=== PATIENT | female | born 1985 | race Caucasian/White ===

== ENCOUNTER 2019-10-10 04:24 | Emergency (ER) | payer SELFPAY ==
--- NOTE | 2019-10-10 04:57 | EDM.PDOC ---
ED HPI GENERAL MEDICAL PROBLEM - General Chief Complaint: Upper Extremity Injury/Pain Stated Complaint: MEDICAL CLEARANCE Time Seen by Provider: 10/10/19 04:52 Source of Information: Reports: Patient History Limitations: Reports: No Limitations - History of Present Illness INITIAL COMMENTS - FREE TEXT/NARRATIVE: She came in police custody says she injured her right wrist. Patient states that she banged her wrist on a hard object. [place] any other trauma Onset: Today Duration: Intermittent Location: Reports: Upper Extremity, Right Quality: Reports: Dull Severity: Mild Improves with: Reports: None Worsens with: Reports: None Associated Symptoms: Reports: No Other Symptoms R wrist Pain Score (Numeric/FACES): 4 - Related Data Allergies Allergy/AdvReac Type Severity Reaction Status Date / Time Penicillins Allergy Anaphylactic Verified 10/10/19 04:41 Shock Home Meds: Home Meds . [No Known Home Meds] 10/10/19 [History] Past Medical History - Infectious Disease History Infectious Disease History: Reports: Chicken Pox - Past Surgical History Musculoskeletal Surgical History: Reports: Other (See Below) Other Musculoskeletal Surgeries/Procedures:: R ankle tendon repair Social & Family History - Tobacco Use Smoking Status *Q: Current Every Day Smoker Years of Tobacco use: 10 Packs/Tins Daily: 0.5 - Caffeine Use Caffeine Use: Reports: Coffee - Recreational Drug Use Recreational Drug Use: No Review of Systems - Review of Systems Review Of Systems: See Below Constitutional: Reports: No Symptoms Eyes: Reports: No Symptoms Ears: Reports: No Symptoms Nose: Reports: No Symptoms Mouth/Throat: Reports: No Symptoms Respiratory: Reports: No Symptoms Cardiovascular: Reports: No Symptoms GI/Abdominal: Reports: No Symptoms Genitourinary: Reports: No Symptoms Musculoskeletal: Reports: Other ( RT Wrist pain minimal swelling) Skin: Reports: No Symptoms Neurological: Reports: No Symptoms Psychiatric: Reports: No Symptoms ED EXAM, GENERAL - Physical Exam Exam: See Below Free Text/Narrative:: She presents in police custody with right wrist pain. Patient states she struck her wrist on a hard object Patient is awake alert and oriented. HEENT Unremarkable rt Wrist. Full range of motion. Minimal tenderness. Limited swelling. Skin intact. Exam Limited By: No Limitations General Appearance: Alert, WD/WN Eye Exam: Bilateral Eye: Normal Fundi, Normal Inspection Ear Exam: Bilateral Ear: Auricle Normal, Canal Normal Nose: Normal Inspection Throat/Mouth: Normal Inspection Head: Atraumatic, Normocephalic Neck: Normal Inspection Respiratory/Chest: No Respiratory Distress Cardiovascular: Normal Peripheral Pulses Rectal (Female) Exam: Deferred Back Exam: Normal Inspection Extremities: Other (Right wrist. Minimal tenderness. Full range of motion. Minimal swelling and redness) Neurological: Alert, Oriented Psychiatric: Normal Affect Skin Exam: Warm Lymphatic: No Adenopathy Course - Vital Signs Text/Narrative:: Emergency room course patient's x-rays were taken. X-rays are negative Be discharged to retirement/she is in custody Last Recorded V/S: Last Vital Signs Temp 98.7 F 10/10/19 04:38 Pulse 99 10/10/19 04:38 Resp 16 10/10/19 04:38 BP 121/79 10/10/19 04:38 Pulse Ox 98 10/10/19 04:38 - Orders/Labs/Meds Orders: Active Orders 24 hr Category Date Time Status Wrist Comp Min 3V Rt [CR] Stat Exams 10/10/19 04:47 Taken Departure - Departure Time of Disposition: 05:13 Disposition: Home, Self-Care 01 Condition: Good Clinical Impression: Contusion of right wrist, initial encounter - Discharge Information Instructions: Contusion, Contusion, [id number] Referrals: PCP,None [Primary Care Provider] - Forms: ED Department Discharge Sepsis Event Note - Evaluation Sepsis Screening Result: No Definite Risk - Focused Exam Vital Signs: Vital Signs Temp Pulse Resp BP Pulse Ox 10/10/19 04:38 98.7 F 99 16 121/79 98 Date Exam was Performed: 10/10/19 Time Exam was Performed: 05:12 - My Orders Last 24 Hours: My Active Orders 10/10/19 04:47 Wrist Comp Min 3V Rt [CR] Stat - Assessment/Plan Last 24 Hours: My Active Orders 10/10/19 04:47 Wrist Comp Min 3V Rt [CR] Stat
--- NOTE | 2019-10-10 05:33 | CR ---
INDICATION: Wrist pain. COMPARISON: None available. TECHNIQUE: AP, lateral, and oblique views of the right wrist are obtained for a total of three views. FINDINGS: There is no sign of fracture or dislocation. The bones of the carpus are in anatomic alignment with the distal radius. There is no sign of significant degenerative change. The soft tissues are normal in appearance with no sign of foreign body. IMPRESSION: Normal right wrist. Dictated by Gino Bolivar MD @ Oct 10 2019 5:31AM Signed by Dr. Gino Bolivar @ Oct 10 2019 5:32AM
== END 2019-10-10 05:30 ==
LOC: MW.ED 04:24
DX: S60.211A Contusion of right wrist, initial encounter (principal); F17.210 Nicotine dependence, cigarettes, uncomplicated; Z88.0 Allergy status to penicillin; W22.8XXA Striking against or struck by other objects, initial encounter
CPT/HCPCS: 73110-26-RT; 73110-RT; 99282; 99284-25